=== PATIENT | female | born 1955 | race American Indian/Alaskan Native ===

== ENCOUNTER 2017-10-15 13:20 | Outpatient (CLI) | payer BC ==
--- NOTE | 2017-10-15 14:38 | Mammography Report ---
Screening mammogram: Routine views compared to prior study of September 2016. There is an area of prior surgical change in the inferomedial left breast with a focal area of inhomogeneity consistent with fat necrosis as previously described. No interval change is noted. The remainder the breast pattern bilaterally generally fatty replaced, unchanged, and also unremarkable. CAD used. Impression: Stable left postoperative changes. Recommendation: Annual mammogram followup. BI-RADS CATEGORY: 2 = Benign ACR BI-RADS MAMMOGRAPHIC CODES: 0 = Needs additional imaging evaluation; 1 = Negative; 2 = Benign; 3 = Probably benign; 4 = Suspicious; 5 = Malignant; 6 = Known biopsy-proven malignancy COMMENT: 1. Dense breast tissue, i.e., adenosis, fibrocystic changes, etc., may obscure an underlying neoplasm. 2. Approximately 10% of cancers are not detected with mammography. 3. A negative mammography report should not delay biopsy if a clinically suspicious mass is present.
== END 2017-10-15 13:21 | disposition home or self-care (01) ==
LOC: MAMMO 13:20
PROVIDERS: ATTEND Family Medicine Adult Medicine
DX: Z12.31 Encounter for screening mammogram for malignant neoplasm of breast (principal)
CPT/HCPCS: 77067; G0202

== ENCOUNTER 2018-12-17 10:17 | Outpatient (CLI) | payer MEDICARE ==
--- NOTE | 2018-12-17 14:07 | Mammography Report ---
BILATERAL DIGITAL SCREENING MAMMOGRAM WITH CAD: 12/17/18 10:17:00 CLINICAL: Routine screening.Breast cancer survivor status post left partial mastectomy . COMPARISON:10/15/17 and 10/10/16 FINDINGS: The breasts are mostly fatty with a few bilateral scattered fibroglandular densities. Stable left lower inner postsurgical scar with benign fat necrosis and scar. Surgical clips associated with a scar. No mass, suspicious architectural distortion or suspicious calcifications. IMPRESSION: No mammographic evidence of malignancy. BI-RADS CATEGORY: 2 -- Benign RECOMMENDATION: Routine mammographic screening in one year. COMMENT: Patient follow-up letters are generated via our [employer] application.
== END 2018-12-17 10:18 | disposition home or self-care (01) ==
LOC: MAMMO 10:17
PROVIDERS: ATTEND Internal Medicine Hematology & Oncology
DX: Z12.31 Encounter for screening mammogram for malignant neoplasm of breast (principal); E78.00 Pure hypercholesterolemia, unspecified; I10 Essential (primary) hypertension; K21.9 Gastro-esophageal reflux disease without esophagitis; E66.9 Obesity, unspecified; Z90.49 Acquired absence of other specified parts of digestive tract; Z90.12 Acquired absence of left breast and nipple
CPT/HCPCS: 77067

== ENCOUNTER 2020-03-17 08:33 | Outpatient (CLI) | payer MEDICARE ==
--- NOTE | 2020-03-17 12:13 | Mammography Report ---
DIGITAL SCREENING MAMMOGRAM WITH CAD, 03/17/2020 INDICATION: Routine screening mammography. Breast cancer survivor status post left partial mastectomy . TECHNIQUE: Digital bilateral 2D mammography was obtained in the craniocaudal and mediolateral obliq ue projections. This examination was interpreted with the benefit of Computer-Aided Detection analysi s. COMPARISON: 12/17/2018 and 12/16/2016 FINDINGS: Breast Density: There are scattered areas of fibroglandular density. Right asymmetries on both views require additional imaging. No architectural distortion or suspicious calcifications of the right breast. There is no evidence of dominant mass, suspicious calcifications or architectural distortion in the left breast. A stable left lower inner posterior surgical scar wi th benign fat necrosis at the scar. Surgical clips at the scar. IMPRESSION: Right asymmetries requiring additional imaging. Recommend recall for right spot compressi on views and right breast ultrasound if needed. Follow up recommendation: Special View: Spot Category 0: Incomplete. Needs additional imaging evaluation and/or prior mammograms for comparison. A "normal" or negative report should not discourage follow up or biopsy of a clinically significant f inding. A written summary of these findings will be mailed to the patient. The patient will be entered into a mammography reporting system which will generate a reminder letter for the patient's next appointmen t at the appropriate interval. The [employer] recommends yearly mammograms starting at age 40 and continuing as l germaine as a woman is in good health. Breast MRI is recommended for women with an approximate 20-25% or greater lifetime risk of breast cancer, including women with a strong family history of breast or ova laney cancer or who have been treated for Hodgkin's disease. Signer Name: Devang Lucero MD Signed: 03/17/2020 12:09 PM Workstation Name: [id number]
== END 2020-03-17 08:34 | disposition home or self-care (01) ==
LOC: MAMMO 08:33
PROVIDERS: ATTEND Internal Medicine Hematology & Oncology
DX: Z12.31 Encounter for screening mammogram for malignant neoplasm of breast (principal); N64.89 Other specified disorders of breast
CPT/HCPCS: 77067

== ENCOUNTER 2020-03-30 10:52 | Outpatient (CLI) | payer MEDICARE ==
--- NOTE | 2020-03-30 12:07 | Mammography Report ---
DIGITAL DIAGNOSTIC MAMMOGRAM WITH CAD, 03/30/2020 INDICATION: Abnormal screening mammogram. Screening recall of the right breast. TECHNIQUE: Digital right mammographic imaging was performed. Spot compression views were obtained. This examination was interpreted with the benefit of Computer-aided Detection analysis. COMPARISON: Screening mammogram, 03/17/2020, 12/17/2018, 10/15/2017 and 10/10/2016 FINDINGS: Breast Density: There are scattered areas of fibroglandular density. Spot compression views of the right breast were obtained which demonstrate resolution of the previous ly noted asymmetries in the upper and central anterior left breast identified on the recent screening mammogram. The appearance of the breast parenchyma is unchanged when compared to multiple prior mamm ograms. IMPRESSION: Follow up recommendation: Routine yearly BI-RADS Category 1: Negative. A "normal" or negative report should not discourage follow up or biopsy of a clinically significant f inding. A written summary of these findings will be mailed to the patient. The patient will be entered into a mammography reporting system which will generate a reminder letter for the patient's next appointmen t at the appropriate interval. According to the [employer], yearly mammograms are recommended starting at age 40 and continuing as long as a woman is in good health. Breast MRI is recommended for women with an hannah roximately 20-25% or greater lifetime risk of breast cancer, including women with a strong family his tory of breast or ovarian cancer and women who have been treated for Hodgkin's disease. Signer Name: Fatoumata Orellana MD Signed: 03/30/2020 12:02 PM Workstation Name: [id number]
== END 2020-03-30 10:53 | disposition home or self-care (01) ==
LOC: SPVWC 10:52
PROVIDERS: ATTEND Internal Medicine Hematology & Oncology
DX: D05.12 Intraductal carcinoma in situ of left breast (principal); D64.9 Anemia, unspecified

== ENCOUNTER 2021-04-12 09:16 | Outpatient (CLI) | payer MEDICARE ==
--- NOTE | 2021-04-12 12:03 | Mammography Report ---
DIGITAL SCREENING MAMMOGRAM WITH CAD, 04/12/2021 INDICATION: Routine screening mammography. TECHNIQUE: Digital bilateral 2D mammography was obtained in the craniocaudal and mediolateral obliq ue projections. This examination was interpreted with the benefit of Computer-Aided Detection analysi s. COMPARISON: 03/17/2020 FINDINGS: Breast Density: There are scattered areas of fibroglandular density. There is no evidence of dominant mass, suspicious calcifications or architectural distortion in eithe r breast. Postbiopsy change left breast. IMPRESSION: Follow up recommendation: Routine yearly BI-RADS Category 2: Benign. A "normal" or negative report should not discourage follow up or biopsy of a clinically significant f inding. A written summary of these findings will be mailed to the patient. The patient will be entered into a mammography reporting system which will generate a reminder letter for the patient's next appointmen t at the appropriate interval. The [employer] recommends yearly mammograms starting at age 40 and continuing as l germaine as a woman is in good health. Breast MRI is recommended for women with an approximate 20-25% or greater lifetime risk of breast cancer, including women with a strong family history of breast or ova laney cancer or who have been treated for Hodgkin's disease. Signer Name: Mychal Kelly MD Signed: 04/12/2021 11:58 AM Workstation Name: [id number]
== END 2021-04-12 09:17 | disposition home or self-care (01) ==
LOC: MAMMO 09:16
PROVIDERS: ATTEND Internal Medicine Hematology & Oncology
DX: Z12.31 Encounter for screening mammogram for malignant neoplasm of breast (principal); N64.89 Other specified disorders of breast
CPT/HCPCS: 77067

== ENCOUNTER 2022-05-18 08:13 | Outpatient (CLI) | payer MEDICARE ==
--- NOTE | 2022-05-19 17:08 | Mammography Report ---
DIGITAL SCREENING MAMMOGRAM WITH CAD, 05/18/2022 CLINICAL INFORMATION / INDICATION: Routine screening mammography. TECHNIQUE: Digital bilateral 2D mammography was obtained in the craniocaudal and mediolateral obliqu e projections. This examination was interpreted with the benefit of Computer-Aided Detection analysis . COMPARISON: 04/12/2021, 03/17/2020 FINDINGS: Breast Density: There are scattered areas of fibroglandular density. No dominant mass, suspicious calcifications, or architectural distortion in either breast. Postlumpectomy and radiation change, left breast. Overall, no interval change. IMPRESSION: No mammographic evidence of malignancy. Follow up recommendation: Routine yearly screening mammogram. - The ACR recommends yearly screening MRI in patients with a personal history of breast cancer who tubbs ve dense fibroglandular tissue as well in patients who were diagnosed with breast cancer under the ag e of 50. BI-RADS Category 2: BENIGN. A "normal" or negative report should not discourage follow up or biopsy of a clinically significant f inding. A written summary of these findings will be mailed to the patient. The patient will be entered into a mammography reporting system which will generate a reminder letter for the patient's next appointmen t at the appropriate interval. The [employer] recommends yearly mammograms starting at age 40 and continuing as l germaine as a woman is in good health. Breast MRI is recommended for women with an approximate 20-25% or greater lifetime risk of breast cancer, including women with a strong family history of breast or ova laney cancer or who have been treated for Hodgkin's disease. Signer Name: Zulay Borden MD Signed: 05/19/2022 5:04 PM Workstation Name: [id number]
== END 2022-05-18 08:14 | disposition home or self-care (01) ==
LOC: MAMMO 08:13
PROVIDERS: ATTEND Internal Medicine Hematology & Oncology
DX: Z12.31 Encounter for screening mammogram for malignant neoplasm of breast (principal); D05.12 Intraductal carcinoma in situ of left breast; D64.9 Anemia, unspecified
CPT/HCPCS: 77067